=== PATIENT | female | born 1990 | race Caucasian/White ===

== ENCOUNTER 2021-06-05 22:15 | Emergency (ER) | payer OTHER ==
[2021-06-05] MEDS ORDERED: FLEXERIL5 MG PO (23:27)
[2021-06-05] MEDS ORDERED: MEDROL 4MG DOSEP4 MG PO (23:27)
[2021-06-06 00:44] LABS: BILIRUBIN NEGATIVE (NEGATIVE); BLOOD 3+ Ery/uL (NEGATIVE); CLARITY CLEAR (CLEAR); COLOR YELLOW (YELLOW); GLUCOSE (U) NORMAL (NORMAL); LEUKOCYTES NEGATIVE Leu/uL (NEGATIVE); NITRITE NEGATIVE (NEGATIVE); PROTEIN NEGATIVE (NEGATIVE); SPECIFIC GRAVITY 1.025 (1.001-1.030); UROBILINOGEN 0.2 mg/dL (0.2-1.0)
[2021-06-06 00:50] LABS: BACTERIA 2+; URINARY WBC RARE
== END 2021-06-06 01:05 | disposition home or self-care (01) ==
LOC: FER 22:15
PROVIDERS: Emergency Medicine
DX: M54.50 Low back pain, unspecified (principal); F17.200 Nicotine dependence, unspecified, uncomplicated; Z88.8 Allergy status to other drugs, medicaments and biological substances
CPT/HCPCS: 81001; 87088; J1885; J7512

== ENCOUNTER 2022-01-17 05:05 | Emergency (ER) | payer OTHER ==
[~2022-01-17 05:05] MED LIST: FLEXERIL5 MG PO; MEDROL 4MG DOSEP4 MG PO
[2022-01-17 05:46] LABS: BASOPHIL 0.4 % (0-2); EOSINOPHIL 2.6 % (0-5); HGB 13.4 g/dl (12.5-16.0); LYMPHOCYTE 34.1 % (15-48); MCH 28.6 pg (25.0-31.0); MCHC 33.5 g/dL (32.0-36.0); MCV 85.3 fL (78.0-100.0); MONOCYTE 6.3 % (0-12); MPV 8.9 fL (6.0-9.5); NEUTROPHIL 56.3 % (41-80); NRBC 0; PLT 395 K/uL (150-400); RBC 4.69 M/uL (4.20-5.40); RDW 13.2 % (11.5-14.0); WBC 11.1 K/uL (4.0-10.5)
[2022-01-17 05:59] LABS: ALBUMIN 3.7 g/dL (3.4-5.0); BILIRUBIN - TOTAL 0.2 mg/dL (0.2-1.0); BUN/CREAT RATIO (CALC) 20.8 RATIO; C-REACTIVE PROTEIN 0.5 mg/dL (<=0.90); CREATININE 0.77 mg/dL (0.51-0.95); POTASSIUM 3.6 mmol/L (3.5-5.1); TOTAL PROTEIN 6.7 g/dL (6.4-8.2)
[2022-01-17 06:55] LABS: BILIRUBIN NEGATIVE (NEGATIVE); BLOOD NEGATIVE Ery/uL (NEGATIVE); CLARITY CLEAR (CLEAR); COLOR YELLOW (YELLOW); GLUCOSE (U) NORMAL (NORMAL); LEUKOCYTES NEGATIVE Leu/uL (NEGATIVE); NITRITE NEGATIVE (NEGATIVE); PROTEIN NEGATIVE (NEGATIVE); UROBILINOGEN 0.2 mg/dL (0.2-1.0)
[2022-01-17 07:03] LABS: CORONAVIRUS 2019 SARS-COV-2 NEGATIVE (NEGATIVE); INFLUENZA A NAA NEGATIVE (NEGATIVE)
[2022-01-17] MEDS ORDERED: PERCOCET 5-3251 EACH PO (07:42)
[2022-01-17] MEDS ORDERED: PREDNISONE 20MG20 MG PO (07:42)
== END 2022-01-17 08:09 | disposition home or self-care (01) ==
LOC: FER 05:05
PROVIDERS: Internal Medicine
DX: M54.50 Low back pain, unspecified (principal); M25.572 Pain in left ankle and joints of left foot; M25.571 Pain in right ankle and joints of right foot; M25.562 Pain in left knee; M25.561 Pain in right knee; M25.512 Pain in left shoulder; M25.511 Pain in right shoulder; F17.290 Nicotine dependence, other tobacco product, uncomplicated; K50.90 Crohn's disease, unspecified, without complications; Z20.822 Contact with and (suspected) exposure to COVID-19; Z28.310 Unvaccinated for COVID-19; Z88.8 Allergy status to other drugs, medicaments and biological substances
CPT/HCPCS: 36415; 72131; 80053; 81003; 84145; 85025; 86140; 87880; J1100; J1170; J2405; U0002

== ENCOUNTER 2022-03-07 13:58 | Emergency (ER) | payer OTHER ==
[~2022-03-07 13:58] MED LIST changes: +PERCOCET 5-3251 EACH PO; +PREDNISONE 20MG20 MG PO
[2022-03-07] MEDS ORDERED: CYCLOBENZAPRINE10 MG PO (15:34)
[2022-03-07] MEDS ORDERED: PREDNISONE 20MG20 MG PO (15:34)
== END 2022-03-07 15:39 | disposition home or self-care (01) ==
LOC: FER 13:58
DX: M54.50 Low back pain, unspecified (principal); M25.542 Pain in joints of left hand; M25.541 Pain in joints of right hand; M25.562 Pain in left knee; M25.561 Pain in right knee; F17.290 Nicotine dependence, other tobacco product, uncomplicated; Z28.310 Unvaccinated for COVID-19
CPT/HCPCS: J1885

== ENCOUNTER 2022-04-20 01:41 | Emergency (ER) | payer OTHER ==
[~2022-04-20 01:41] MED LIST changes: +CYCLOBENZAPRINE10 MG PO
[2022-04-20] MEDS ORDERED: NORCO 5-325 TA1 EACH PO (03:43)
== END 2022-04-20 03:54 | disposition home or self-care (01) ==
LOC: FER 01:41
DX: M72.0 Palmar fascial fibromatosis [Dupuytren] (principal); Z88.8 Allergy status to other drugs, medicaments and biological substances; Z91.018 Allergy to other foods
CPT/HCPCS: 73140; 96372; J1885; J2930